=== PATIENT | female | born 1985 | race Hispanic/Latino ===

== ENCOUNTER 2016-12-13 21:44 | Emergency (ER) | payer MEDICAID, OTHER ==
[~2016-12-13] VITALS: Ht 157.5 cm; Wt 111.2 kg
[2016-12-13 21:57] VITALS: BP 133/78; PULSE 82; RESP 16; O2SAT 100
--- NOTE | 2016-12-13 22:43 | ED.REPORT ---
HPI-General Illness Date of Service Dec 13, 2016 ED Provider: Raheel Wilson MD 31 y/o 15 weeks female () with a hx of gestational diabetes and gestational thrombocytopenia presents to the ED complaining of left flank pain, onset 7 hours ago. Her pain is exacerbated with movement. She states "it hurts to put my feet up and to get in and out of the car or if I am positioned a certain way." She denies abnormal vaginal bleeding, dysuria, numbness and tingling in the legs, coughing, hx of kidney stones and hx of chronic back pain. Nursing Notes Stated Complaint: LOWER LEFT SIDE PAIN Chief Complaint: Female Abdominal Pain Nursing Notes Reviewed: Yes Allergies: Coded Allergies: No Known Allergies (Verified , 12/13/16) Scheduled PRN Ibuprofen (Ibuprofen) 600 Mg Tablet 600 MG PO QID PRN PRN For Pain General Time Seen by MD: 22:32 Chief Complaint Other (left flank pain) Hx Obtained From: Patient Arrived By: Walk-in Sudden in Onset?: Yes Onset Occurred: 5 - 8 hours ago Symptom Duration: Since onset Quality: Painful (left flank) Radiation: : Does not radiate Severity: Current: Severe Severity: Maximum: Severe Recent Healthcare: Recent doctor visit Similar Sx Previous: No Past Medical History Past Medical History Gestational diabetes Obesity Gestational thrombocytopenia Past Surgical History s/p C section 09/13/2014 Reports: Smoking History Never Smoker Social History Other Social History: Good social support Ambulatory Status Independent Review of Systems Denies: numbness and tingling in legs Full Review of Systems Respiratory: Denies: Non-productive cough Female: Reports: Flank pain (left), Denies: Dysuria, Vaginal bleeding - abnl Complete sys rev & neg: except as marked. Physical Exam Vital Signs Vital Signs Date Time Temp Pulse Resp B/P Pulse Ox O2 Delivery O2 Flow Rate FiO2 12/14/16 01:06 36.9 82 18 132/76 99 Room Air 12/13/16 21:57 36.7 82 16 133/78 100 Room Air Initial VS: Reviewed Head / Eyes: Atraumatic, Normocephalic, PERRL ENT: Mucous membranes moist, Conjunctiva normal, No scleral icterus Neck: Supple, Non-tender, Full range of motion Respiratory: Breath sounds normal, Clear to auscultation, No respiratory distress Cardiovascular: Regular rate & rhythm, Heart sounds normal, Intact distal pulses Abdomen / GI: Soft, Non-tender Extremities: Vascular intact, Neuro intact, No swelling, No tenderness Skin: Warm, Dry, No cyanosis Neurologic: Alert, Oriented, Nonfocal Back: Atraumatic, Full range of motion, No CVA tenderness Paraspinus and lumbar tenderness No costovertebral tenderness Interpretation & Diagnostics Exam: US Renal Conclusion: Prominent kidneys bilaterally, more so on the left. No evidence of hydronephrosis or other renal abnormality. Signed by Dr. Genesis Gan 12/13/16 23:53 Lab Results Interpretation Result Diagram: 12/13/16 2356 12/13/16 2356 Test 12/13/16 22:30 12/13/16 23:56 12/13/16 23:57 Urine Color Yellow (YELLOW) Urine Appearance Hazy (CLEAR,HAZY) Urine pH 5.5 (5.0-8.0) Urine Specific [place] 1.030 (1.003-1.035) Urine Protein Negativemg/dL (NEG,TRACE) Urine Glucose (UA) 250mg/dL (NEGATIVE) Urine Ketones Negativemg/dL (NEGATIVE) Urine Occult Blood Trace (NEGATIVE) Urine Nitrite Negative (NEGATIVE) Urine Bilirubin Negative (NEGATIVE) Urine Urobilinogen Normalmg/dL (NORMAL) Urine Leukocyte Esterase Negative (NEGATIVE) Urine RBC 0-2/hpf (0-2) Urine WBC 0-5/hpf (0-5) Urine Epithelial Cells Many/hpf (NONE-MOD) Urine Crystals None seen (NONE SEEN) Urine Bacteria Many/hpf (NONE-FEW) Urine Hyaline Casts None/lpf (NONE) Urine Granular Casts None seen (NONE SEEN) Urine Waxy Casts None seen (NONE SEEN) Urine Red Blood Cell Casts None seen (NONE SEEN) Urine White Blood Cell Casts None seen (NONE SEEN) Urine Mucus Present (None Seen) Urine Trichomonas None seen (NONE SEEN) Urine Yeast None (NONE SEEN) Urinalysis Comment None Urine Culture Reflexed Indicated White Blood Count 7.4th/mm3 (3.8-10.1) Red Blood Count 3.77mil/mm3 (3.90-5.20) Hemoglobin 10.8g/dL (12.0-15.6) Hematocrit 33.5% (35.0-46.0) Mean Corpuscular Volume 88.9fL (81-100) Mean Corpuscular Hemoglobin 28.6pg (27.0-35.0) Mean Corpuscular Hemoglobin Concent 32.2% (32.0-37.0) Red Cell Distribution Width 14.6% (12.3-15.4) Platelet Count 138bil/L (150-400) Neutrophils (%) (Auto) 68.0% (40-74) Lymphocytes (%) (Auto) 22.8% (14-46) Monocytes (%) (Auto) 7.6% (4-12) Eosinophils (%) (Auto) 1.2% (0-5) Basophils (%) (Auto) 0.1% (0-3) Sodium Level 138mEq/L (134-144) Potassium Level 4.0mEq/L (3.5-5.2) Chloride Level 101mEq/L (97-108) Carbon Dioxide Level 22mmol/L (18-29) Blood Urea Nitrogen 8mg/dL (6-20) Creatinine 0.49mg/dL (0.57-1.00) Estimat Glomerular Filtration Rate 210mL/min (>59) Glucose Level 123mg/dL (60-99) Calcium Level 9.1mg/dL (8.5-10.1) Total Bilirubin 0.2mg/dL (0.0-1.2) Aspartate Amino Transf (AST/SGOT) 28U/L (0-50) Alanine Aminotransferase (ALT/SGPT) 27U/L (0-32) Alkaline Phosphatase 73U/L (25-150) Total Protein 7.3g/dL (6.4-8.4) Albumin 3.9g/dL (3.4-5.0) Lipase 42U/L (13-60) Hold Garza Top Tube Received (Received) Re-Eval/Medical Decision Med Decision/Clinical Course 31-year-old female currently fifteen weeks presents with back pain. Evaluation for other causes including UTI, hydronephrosis, all negative. Labs are reassuring. Ultrasound negative. Back is clearly tender and movement elicits the pain. Discharged with ibuprofen and rest heat. Follow-up with PCP. Time of Eval: 00:45 Re-Evaluation/Progress Note: Rechecked pt. Discussed lab results, imaging results, diagnosis and plan to discharge. Pt understands and agrees with the plan. F/U instruction and RTER warning given. All questions addressed. Counseled Regarding: Diagnosis, Lab results, Need for follow-up, When/why to return to ED Discharge & Departure Primary Impression: Back pain Back pain location: low back pain Chronicity: acute Back pain laterality: left Sciatica presence: unspecified whether sciatica present Qualified Code: M54.5 - Low back pain Additional Impression: Second trimester Disposition: Home Discharge Condition All VS Reviewed: Yes Patient Instructions: Acute Low Back Pain (ED) Additional Instructions: The fact that your pain worsens with movement and improves with rest, and is localized in your back, suggests this is muscular/skeletal pain. Your labs are reassuring and your ultrasound shows no evidence of kidney stone or swelling. Ibuprofen is safe in up through twenty weeks. Take a tablet four times daily as needed for pain. Follow-up with your doctor in the office. Return if any immediate issues. Referrals: [facility] (PCP) Scribe Attestation Portions of this note were transcribed by Binta Burr. I,, personally performed the history, physical exam and medical decision-making;I reviewed and confirmed the accuracy of the information in the transcribed note. Signed by Davina Bazan. 12/13/16 copies to: [facility] Raheel Wilson MD Dec 13, 2016 22:43 Binta Burr Dec 13, 2016 23:16
[2016-12-13 23:08] LABS: APPEARANCE,URINE HAZY (CLEAR,HAZY); COLOR,URINE YELLOW (YELLOW); OCCULT BLOOD,URINE TRACE (NEGATIVE); PH,URINE 5.5 (5.0-8.0); UROBILINOGEN,URINE NORMAL (NORMAL)
[2016-12-14 00:01] LABS: BASOPHILS % (AUTO) 0.1 % (0-3); EOSINOPHILS % (AUTO) 1.2 % (0-5); MONOCYTES % (AUTO) 7.6 % (4-12); Mean Corpuscular Hemoglobin 28.6 pg (27.0-35.0); Mean Corpuscular Volume 88.9 fL (81-100); Platelet Count 138 bil/L (150-400)
[2016-12-14] MEDS ORDERED: IBUP-1827 PO (00:39)
[2016-12-14 01:06] VITALS: BP 132/76; PULSE 82; RESP 18; O2SAT 99
--- NOTE | 2016-12-14 11:03 | DRSVH ---
PROCEDURE: US RENAL SONOGRAM INDICATIONS: left flank pain, r/o hydro TECHNIQUE: Real-time scanning was performed of the kidneys and bladder, with image documentation. COMPARISON: [facility], CT, ABD/PELVIS W/CON (PNL), 05/27/2009, 17:28. FINDINGS: Kidneys: Kidneys are normal in size. Right kidney measures 13.9 cm long; left kidney measures 15.2 cm long. Right renal cortical thickness is 1.9 cm; left renal cortical thickness is 1.9 cm. Renal c ortical echotexture is normal. No hydronephrosis or nephrolithiasis. No suspicious solid mass lesio ns. Bladder: Pre-void bladder volume is empty. . Pre-void images demonstrate no intraluminal masses or stones. On pre-void images, neither ureteral jets are noted with color Doppler interrogation. (Of note, ureteral jets may not be detectable in up to 25% of cases due to insufficient differences in sp ecific gravity between ureteral and bladder urine). Miscellaneous: No free pelvic fluid. IMPRESSION: 1. Kidneys are generous in size. No hydronephrosis. 2. Empty bladder. No significant discrepancy with the shift engineer radiology preliminary report. Dictated by: Gilma Zaldivar M.D. on 12/14/2016 at 10:57 Approved by: Gilma Zaldivar M.D. on 12/14/2016 at 11:00
== END 2016-12-14 00:54 | disposition home or self-care (01) ==
LOC: SED 21:44
DX: O99.89 Other specified diseases and conditions complicating pregnancy, childbirth and the puerperium (principal); M54.5 Low back pain; Z3A.15 15 weeks gestation of pregnancy